=== PATIENT | male | born 1955 | race Caucasian/White ===

== ENCOUNTER → 2024-02-02 10:57 | Outpatient (REF) | payer MEDICARE, SELFPAY ==
[2024-02-02 12:01] LABS: Blood Urea Nitrogen 15 mg/dl (9-20); Calcium 9.7 mg/dl (8.4-10.2); Carbon Dioxide 23 mmol/L (22-30); Glucose 99 mg/dl (70-99); Potassium 4.9 mmol/L (3.5-5.1); Sodium 142 mmol/L (135-145); eGFR > 60.00
[2024-02-02 12:24] LABS: Chloride 105 mmol/L (98-107)
== END ==
LOC: REG 10:57
PROVIDERS: ATTENDING PHYSICIAN Family Medicine
DX: Z01.812 Encounter for preprocedural laboratory examination (principal); R79.9 Abnormal finding of blood chemistry, unspecified
CPT/HCPCS: 36415; 80048

== ENCOUNTER → 2024-02-09 11:58 | Outpatient (REF) | payer MEDICARE, SELFPAY | LOC: RAD 11:58 | PROVIDERS: ATTENDING PHYSICIAN Family Medicine | DX: K86.2 Cyst of pancreas (principal) | CPT/HCPCS: 71260; 74160; Q9967 ==